=== PATIENT | female | born 1970 | race Caucasian/White ===

== ENCOUNTER 2017-09-13 09:15 | Emergency (ER) | payer OTHER ==
[2017-09-13 10:10] LABS: Absolute Monocytes 0.6 K/uL (0.1-1.3); Absolute Neutrophil 11.3 K/uL (1.8-8.0); Basophils % 0.9 % (0-1.3); Eosinophils % 0.5 % (0-4.4); Hematocrit 38.5 % (36.0-45.0); Lymphocytes % 14.2 % (15.3-44.8); MCH 29.1 pg (27.0-35.0); MCV 87.8 fL (80-100); MPV 7.3 fL (7.6-11.3); Monocytes % 4.4 % (3.3-12.3); RBC Red Blood Cell Count 4.39 M/uL (3.86-4.86)
[2017-09-13] MEDS ORDERED: ONDANSETRON 4 MG/2 ML VIAL ONE ×2 (10:21→12:21)
[2017-09-13] MEDS ORDERED: MORPHINE 4 MG/ML SYR ONE ×2 (10:21→14:28)
[2017-09-13] MEDS ORDERED: NA CHLORIDE 0.9% 1,000 ML ONE ×2 (10:21→14:19)
[2017-09-13 10:41] LABS: ALT/SGPT 15 IU/L (10-60); AST/SGOT 19 IU/L (10-42); Albumin 3.6 g/dL (3.2-5.5); Alkaline Phosphatase 74 IU/L (42-121); BUN Blood Urea Nitrogen 10 mg/dL (6-20); Bicarbonate 26 mEq/L (21-31); Bilirubin Direct < 0.1 mg/dL (0-0.2); Bilirubin Total 0.7 mg/dL (0.3-1.2); Glucose Level 141 mg/dL (65-120); Potassium 3.3 mEq/L (3.6-5.0); Protein, Total 8.7 g/dL (6.0-8.3); Sodium Level 137 mEq/L (135-145)
[2017-09-13 10:42] LABS: Blood Morphology Comment NOT SEEN (NOT SEEN); Platelet Estimate ADEQ; Urine White Blood Cell Casts OK
--- NOTE | 2017-09-13 12:53 | RAD REPORT ---
EXAM DESCRIPTION: CT - Abdomen Pelvis W Contrast - 09/13/2017 12:34 pm CLINICAL HISTORY: Abdominal pain, nausea vomiting and diarrhea, prior hysterectomy COMPARISON: CT imaging and September 03 TECHNIQUE: Biphasic, helical CT imaging of the abdomen and pelvis was performed following 100 ml non -ionic IV contrast. No oral contrast administered. All CT scans are performed using dose optimization technique as appropriate and may include automated exposure control or mA/KV adjustment according to patient size. FINDINGS: No suspicious findings in the lung bases. Liver and spleen are normal in size. No focal lesions identified. Pneumobilia is present. There is ai r within the lumen of the gallbladder. Air is not unexpected. Biliary stent is in place. Gallbladder size is normal. Pancreas is grossly abnormal. There is very extensive peripancreatic fluid and inflammatory stranding . There is poorly defined or hypoattenuating pancreatic tail suspicious for necrosis. Along the infer ior margin of the tail there is a 5 x 2.5 centimeter area of fluid that shows some greater definition or margination. This is probably a developing pseudocyst. Pancreatitis changes are slightly worse th an seen September 03. Symmetric renal function is seen with no hydronephrosis or suspicious renal mass. No dilated bowel loops. Soliz of the duodenal C-loop are mildly prominent indicating some secondary i nvolvement by the pancreatitis. Oral contrast has reached the mid small bowel. No free air or pneumat osis. No mass or bulky lymphadenopathy. The urinary bladder is without significant finding. No adren al abnormality. Uterus absent. No suspicious bony findings. IMPRESSION: Moderately severe acute pancreatitis slightly worse than seen on September 04 imaging. Hypoattenuation of the pancreatic tail concerning for necrosis. A 5 x 2.5 centimeter fluid collection is developed bowing along the inferior margin of the pancreatic tail believed to be a developing pseudocyst.
--- NOTE | 2017-09-13 13:59 | ER ---
Nurse's Notes [facility] Name: Christie Cardenas Age: 47 yrs Sex: Female : 1970 Arrival Date: 09/13/2017 Time: 09:18 Bed 15 Private MD: None, None Diagnosis: Necrotizing pancreatitis Presentation: 09/13 09:31 Presenting complaint: Patient states: N/V/D x2 days. Transition of care: patient was jl7 not received from another setting of care. Onset of symptoms was September 11, 2017. Risk Assessment: Do you want to hurt yourself or someone else? Patient reports no desire to harm self or others. Initial Sepsis Screen: Does the patient meet any 2 criteria? No. Patient's initial sepsis screen is negative. Does the patient have a suspected source of infection? No. Patient's initial sepsis screen is negative. Care prior to arrival: None. 09:31 Method Of Arrival: Ambulatory [facility] 09:31 Acuity: KVNG 3 jl7 Triage Assessment: 09:34 General: Appears in no apparent distress. uncomfortable, Behavior is cooperative, jl7 appropriate for age, anxious. Pain: Complains of pain in right upper quadrant Pain does not radiate. Pain currently is 10 out of 10 on a pain scale. Quality of pain is described as crampy, Pain began 2-3 days ago. Is continuous. Neuro: Level of Consciousness is awake, alert, obeys commands, Oriented to person, place, time, situation. Cardiovascular: Patient's skin is warm and dry. Respiratory: Airway is patent Respiratory effort is even, unlabored, Respiratory pattern is regular, symmetrical. GI: Abdomen is round non-distended, Bowel sounds present X 4 quads. : No signs and/or symptoms were reported regarding the genitourinary system. Derm: Skin is pink, warm \T\ dry. 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 - Social history:: Smoking status: Patient/guardian denies using tobacco. - Ebola Screening: : No symptoms or risks identified at this time. Screenin:38 Abuse screen: Denies threats or abuse. Denies injuries from another. Nutritional jl7 screening: No deficits noted. Tuberculosis screening: No symptoms or risk factors identified. Fall Risk None identified. Assessment: 09:38 General: See triage assessment. jl7 10:55 Reassessment: Pt reports decreased pain, rated 3/10. jl7 11:00 Reassessment: Patient appears in no apparent distress at this time. Patient and/or hb family updated on plan of care and expected duration. Pain level reassessed. Patient is alert, oriented x 3, equal unlabored respirations, skin warm/dry/pink. 11:45 Reassessment: Pt reports pain is beginning to increase again, rated 7/10. jl7 12:00 Reassessment: Patient appears in no apparent distress at this time. Patient and/or hb family updated on plan of care and expected duration. Pain level reassessed. Patient is alert, oriented x 3, equal unlabored respirations, skin warm/dry/pink. 13:00 Reassessment: Patient appears in no apparent distress at this time. Patient and/or hb family updated on plan of care and expected duration. Pain level reassessed. Patient is alert, oriented x 3, equal unlabored respirations, skin warm/dry/pink. 14:15 Reassessment: pt c/o increased pain, provider notified, see MAR for orders. jl7 14:30 Reassessment: Patient states feeling better. jl7 15:30 Reassessment: Patient and/or family updated on plan of care and expected duration. Pain jl7 level reassessed. Patient is alert, oriented x 3, equal unlabored respirations, skin warm/dry/pink. Vital Signs: 09:34 BP 156 / 99; Pulse 106; Resp 18 S; Temp 97.2(TE); Pulse Ox 96% on R/A; Weight 92.53 kg jl7 (R); Height 5 ft. 5 in. (165.10 cm) (R); Pain 10/10; 11:00 BP 142 / 82; Pulse 88; Resp 16; Pulse Ox 100% on R/A; hb 11:00 Pain 3/10; jl7 12:03 BP 139 / 68; Pulse 71; Resp 17; Pulse Ox 100% on R/A; Pain 7/10; hb 13:26 BP 136 / 72; Pulse 70; Resp 16; Pulse Ox 100% on R/A; hb 15:00 BP 138 / 71; Pulse 71; Resp 16; Pulse Ox 100% ; jl7 09:34 Body Mass Index 33.95 (92.53 kg, 165.10 cm) jl7 ED Course: 09:18 Patient arrived in ED. sb2 09:19 None, None is Private Physician. sb2 09:27 Dharmesh Drake, RN is Primary Nurse. jl7 09:32 Triage completed. jl7 09:34 Arm band placed on right wrist. jl7 09:38 Patient has correct armband on for positive identification. Bed in low position. Call [facility] light in reach. Side rails up X 1. Pulse ox on. NIBP on. Warm blanket given. 09:49 Eliecer Maddox PA is PHCP. jr8 09:49 Osiel Armijo MD is Attending Physician. jr8 10:06 Initial lab(s) drawn, by nh, sent to lab. Inserted saline lock: 20 gauge in left 7 antecubital area, using aseptic technique. Blood collected. 12:27 CT completed. Patient tolerated procedure well. Patient moved to CT via wheelchair. mw3 Patient moved back from CT. 12:34 Abdomen In Process Unspecified. EDMS Administered Medications: 10:24 Drug: NS 0.9% 1000 ml Route: IV; Rate: 1000 ml; Site: left antecubital; jl7 11:30 Follow up: IV Status: Completed infusion jl7 10:25 Drug: Zofran 4 mg Route: IVP; Site: left antecubital; jl7 11:00 Follow up: Response: No adverse reaction jl7 10:27 Drug: morphine 4 mg Route: IVP; Site: left antecubital; jl7 11:00 Follow up: Pain 3/10; Response: No adverse reaction; Pain is decreased jl7 12:58 CANCELLED (Physician Discretion): Zosyn 3.375 grams IVPB once over 60 mins; (mix in NS jr8 100 mL) 14:30 Drug: morphine 4 mg Route: IVP; Site: left antecubital; jl7 14:40 Follow up: Response: No adverse reaction; Pain is decreased jl7 14:31 Drug: Meropenem 1 grams Route: IV; Rate: calculated rate; Site: left antecubital; jl7 15:00 Follow up: Response: No adverse reaction; IV Status: Completed infusion 14:32 Drug: NS 0.9% 1000 ml Route: IV; Rate: 125 ml/hr; Site: left antecubital; jl7 16:10 Follow up: IV Status: Infusion continued upon transfer Outcome: 13:59 ER care complete, transfer ordered by rn 16:13 Patient left the ED. Signatures: Dispatcher [employer] EDMS Osiel Armijo MD MD rn Roszak, Josh, PA PA jr8 Nata Radford RN RN hb Leal, Jahala, RN RN jl7 Adele Maldonado sb2 Marcia Sandoval mw3 Corrections: (The following items were deleted from the chart) 12:06 12:06 Pain 3/10 Adult; Response: No adverse reaction; Pain is decreased 7
[2017-09-13] MEDS ORDERED: Meropenem 1,000 MG in NA CHLORIDE 0.9% 100 ML IV ONE (14:00)
--- NOTE | 2017-09-13 14:00 | EDPHYS ---
Physician Documentation [facility] Name: Christie Cardenas Age: 47 yrs Sex: Female : 1970 Arrival Date: 09/13/2017 Time: 09:18 Bed 15 Private MD: None, None ED Physician Osiel Armijo HPI: 09/13 10:04 This 47 yrs old Female presents to ER via Ambulatory with complaints of jr8 Abdominal Pain, Diarrhea. 10:04 The patient presents with abdominal pain in the upper abdomen. Onset: The jr8 symptoms/episode began/occurred acutely, 2 day(s) ago. The symptoms do not radiate. Associated signs and symptoms: Pertinent positives: nausea, vomiting, and diarrhea. The symptoms are described as sharp. Modifying factors: The symptoms are alleviated by nothing, the symptoms are aggravated by nothing. Severity of pain: At its worst the pain was moderate in the emergency department the pain is unchanged. The patient has experienced a previous episode. The patient has not recently seen a physician. Patient stated that she was discharged a few days ago from having a stent placed in CBD from a stone. The stone caused pancreatitis. Stated that she was still having some pain on/off but now having n/v/d. Denies fevers . 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 - Social history:: Smoking status: Patient/guardian denies using tobacco. - Ebola Screening: : No symptoms or risks identified at this time. ROS: 10:04 Eyes: Negative for injury, pain, redness, and discharge, ENT: Negative for injury, jr8 pain, and discharge, Neck: Negative for injury, pain, and swelling, Cardiovascular: Negative for chest pain, palpitations, and edema, Respiratory: Negative for shortness of breath, cough, wheezing, and pleuritic chest pain, Back: Negative for injury and pain, MS/Extremity: Negative for injury and deformity, Skin: Negative for injury, rash, and discoloration, Neuro: Negative for headache, weakness, numbness, tingling, and seizure. 10:04 Abdomen/GI: Positive for abdominal pain, nausea, vomiting, and diarrhea, Negative for abdominal cramps, abdominal distension, anorexia, dysphagia, hematemesis, black/tarry stool, rectal pain, rectal bleeding, bowel incontinence, flatulence. Exam: 10:04 Eyes: Pupils equal round and reactive to light, extra-ocular motions intact. Lids and jr8 lashes normal. Conjunctiva and sclera are non-icteric and not injected. Cornea within normal limits. Periorbital areas with no swelling, redness, or edema. ENT: Nares patent. No nasal discharge, no septal abnormalities noted. Tympanic membranes are normal and external auditory canals are clear. Oropharynx with no redness, swelling, or masses, exudates, or evidence of obstruction, uvula midline. Mucous membranes moist. Neck: Trachea midline, no thyromegaly or masses palpated, and no cervical lymphadenopathy. Supple, full range of motion without nuchal rigidity, or vertebral point tenderness. No Meningismus. Cardiovascular: Regular rate and rhythm with a normal S1 and S2. No gallops, murmurs, or rubs. Normal PMI, no JVD. No pulse deficits. Respiratory: Lungs have equal breath sounds bilaterally, clear to auscultation and percussion. No rales, rhonchi or wheezes noted. No increased work of breathing, no retractions or nasal flaring. Back: No spinal tenderness. No costovertebral tenderness. Full range of motion. Skin: Warm, dry with normal turgor. Normal color with no rashes, no lesions, and no evidence of cellulitis. MS/ Extremity: Pulses equal, no cyanosis. Neurovascular intact. Full, normal range of motion. Neuro: Awake and alert, GCS 15, oriented to person, place, time, and situation. Cranial nerves II-XII grossly intact. Motor strength 5/5 in all extremities. Sensory grossly intact. Cerebellar exam normal. Normal gait. 10:04 Abdomen/GI: Inspection: obese Bowel sounds: active, all quadrants, Palpation: soft, in all quadrants, mild abdominal tenderness, in the epigastric area and right upper quadrant, mass, is not appreciated, rebound tenderness, is not appreciated, voluntary guarding, is not appreciated, involuntary guarding, is not appreciated, no appreciated organomegaly, Indicators: McBurney's point is not tender, Luciano's sign is negative, Rovsing's sign is negative, Liver: no appreciated palpable abnormalities, tenderness, is not appreciated. Vital Signs: 09:34 BP 156 / 99; Pulse 106; Resp 18 S; Temp 97.2(TE); Pulse Ox 96% on R/A; Weight 92.53 kg jl7 (R); Height 5 ft. 5 in. (165.10 cm) (R); Pain 10/10; 11:00 BP 142 / 82; Pulse 88; Resp 16; Pulse Ox 100% on R/A; hb 11:00 Pain 3/10; jl7 12:03 BP 139 / 68; Pulse 71; Resp 17; Pulse Ox 100% on R/A; Pain 7/10; hb 13:26 BP 136 / 72; Pulse 70; Resp 16; Pulse Ox 100% on R/A; hb 15:00 BP 138 / 71; Pulse 71; Resp 16; Pulse Ox 100% ; jl7 09:34 Body Mass Index 33.95 (92.53 kg, 165.10 cm) jl7 MDM: 09:49 Patient medically screened. jr8 13:03 Data reviewed: vital signs, nurses notes, lab test result(s), radiologic studies, CT jr8 scan, and as a result, I will admit patient. Data interpreted: Pulse oximetry: on room air is 100 %. Interpretation: normal. Counseling: I had a detailed discussion with the patient and/or guardian regarding: the historical points, exam findings, and any diagnostic results supporting the discharge/admit diagnosis, lab results, radiology results, the need to transfer to another facility, for higher level of care. ED course: Spoke with Dr. Rodriguez about this patient since she was recently here. CT shows worsening of pancreatitis with now necrosis to tail region possibly. Will transfer since our general surgery team does not do Whipple procedures incase patient is needing this . 09/13 09:49 Order name: Basic Metabolic Panel; Complete Time: 11:09/13 09:49 Order name: CBC with Diff; Complete Time: 11:09/13 09:49 Order name: Creatinine for Radiology; Complete Time: 11:09/13 09:49 Order name: Hepatic Function; Complete Time: 11: 09/13 09:54 Order name: Lipase; Complete Time: 13:02 hb 09/13 10:15 Order name: CBC Smear Scan; Complete Time: 11:01 [facility] 09/13 12:24 Order name: Abdomen ; Complete Time: 12:55 [facility] 09/13 09:49 Order name: IV Saline Lock; Complete Time: 10:05 8 09/13 09:49 Order name: Labs collected and sent; Complete Time: 10: [facility] Administered Medications: 10:24 Drug: NS 0.9% 1000 ml Route: IV; Rate: 1000 ml; Site: left antecubital; jl7 11:30 Follow up: IV Status: Completed infusion jl7 10:25 Drug: Zofran 4 mg Route: IVP; Site: left antecubital; jl7 11:00 Follow up: Response: No adverse reaction jl7 10:27 Drug: morphine 4 mg Route: IVP; Site: left antecubital; jl7 11:00 Follow up: Pain 3/10; Response: No adverse reaction; Pain is decreased jl7 12:58 CANCELLED (Physician Discretion): Zosyn 3.375 grams IVPB once over 60 mins; (mix in NS jr8 100 mL) 14:30 Drug: morphine 4 mg Route: IVP; Site: left antecubital; jl7 14:40 Follow up: Response: No adverse reaction; Pain is decreased jl7 14:31 Drug: Meropenem 1 grams Route: IV; Rate: calculated rate; Site: left antecubital; jl7 15:00 Follow up: Response: No adverse reaction; IV Status: Completed infusion jl7 14:32 Drug: NS 0.9% 1000 ml Route: IV; Rate: 125 ml/hr; Site: left antecubital; jl7 16:10 Follow up: IV Status: Infusion continued upon transfer jl7 Disposition: 17:30 Co-signature as Attending Physician, Osiel Armijo MD. rn Disposition: 09/13/17 13:59 Transfer ordered to [facility]. Diagnosis is Necrotizing pancreatitis. - Reason for transfer: Higher level of care. - Accepting physician is Dr. Dunn. - Condition is Stable. - Problem is new. - Symptoms have improved. Signatures: Dispatcher [employer] [facility] Armijo, Osiel, Eliecer Bryan MD, rn, PA PA jr8 Dharmesh Drake, RN RN jl7 Corrections: (The following items were deleted from the chart) 10:05 09:49 Urine Test ordered. jr8 jl7 12:58 12:56 Zosyn 3.375 grams IVPB once over 60 mins; (mix in NS 100 mL) ordered. jr8 jr8 13:01 11:51 Abdomen Pelvis W Con+CT.RAD.BRZ ordered. EDMS EDMS 14:11 13:59 09/13/2017 13:59 Transfer ordered to [facility]. Diagnosis is rn Necrotizing pancreatitis. Reason for transfer: Higher level of care. Accepting physician is . Condition is Stable. Problem is new. Symptoms have improved. rn 16:13 14:11 09/13/2017 13:59 Transfer ordered to [facility]. Diagnosis is jl7 Necrotizing pancreatitis. Reason for transfer: Higher level of care. Accepting physician is Dr. Dunn. Condition is Stable. Problem is new. Symptoms have improved. rn
[2017-09-13] MEDS ORDERED: Meropenem 1 GM/100 ML BAG ONE (14:18)
[2017-09-13 16:32] VITALS: TEMP 97.2
[2017-09-13 16:33] VITALS: O2SAT 100
[2017-09-13 16:37] VITALS: BP 138/71
== END 2017-09-13 16:13 | disposition short-term general hospital (02) ==
LOC: ER 09:15
DX: K85.91 Acute pancreatitis with uninfected necrosis, unspecified (principal); I10 Essential (primary) hypertension; Z79.01 Long term (current) use of anticoagulants; Z88.1 Allergy status to other antibiotic agents; Z86.73 Personal history of transient ischemic attack (TIA), and cerebral infarction without residual deficits
CPT/HCPCS: 36415; 74177; 80048; 80076; 83690; 85025; 96361; 96365; 96375; 99284; J2185; J2405; J7030; Q9967

== ENCOUNTER 2017-11-08 09:04 | Observation (INO) | payer OTHER ==
[2017-11-08 10:22] LABS: Urine Blood NEGATIVE (NEG); Urine Glucose NEGATIVE (NEG); Urine Protein 3+ (NEG); Urine Specific Gravity >1.030 (1.005-1.030)
[2017-11-08 10:25] LABS: Urine Bacteria <20 /HPF (<20); Urine Culture Reflex Order NOT NEEDED; Urine Mucus 3+ /HPF (NONE SEEN); Urine RBC <5 /HPF (NONE SEEN)
[2017-11-08] MEDS ORDERED: NA CHLORIDE 0.9% 1,000 ML ONE (11:05)
[2017-11-08] MEDS ORDERED: ONDANSETRON 4 MG/2 ML VIAL ONE (11:06)
[2017-11-08] MEDS ORDERED: MORPHINE 4 MG/ML SYR ONE ×2 (11:06→12:56)
[2017-11-08 11:08] LABS: Absolute Lymphocytes (CBC) 2.3 K/uL (0.7-4.9); Absolute Monocytes 0.6 K/uL (0.1-1.3); Absolute Neutrophil 4.8 K/uL (1.8-8.0); Basophils % 1.3 % (0-1.3); Eosinophils % 0.4 % (0-4.4); Hematocrit 37.8 % (36.0-45.0); Lymphocytes % 29.2 % (15.3-44.8); MCH 27.9 pg (27.0-35.0); MCV 83.4 fL (80-100); MPV 8.4 fL (7.6-11.3); Monocytes % 7.4 % (3.3-12.3); RBC Red Blood Cell Count 4.53 M/uL (3.86-4.86)
[2017-11-08 11:28] LABS: Bilirubin Direct 0.1 mg/dL (0-0.2); Bilirubin Total 0.5 mg/dL (0.2-1.0); Potassium 3.2 mmol/L (3.5-5.1); Protein, Total 8.6 g/dL (6.4-8.2)
--- NOTE | 2017-11-08 12:37 | RAD REPORT ---
EXAM DESCRIPTION: CT - Abdomen Pelvis W Contrast - 11/08/2017 12:15 pm CLINICAL HISTORY: Abdominal pain with vomiting for 2 days COMPARISON: August 2017 TECHNIQUE: Computed axial tomography of the abdomen pelvis was obtained. 100 cc Isovue-300 was admin istered intravenously. Oral contrast was not requested which limits evaluation of bowel. All CT scans are performed using dose optimization technique as appropriate and may include automated exposure control or mA/KV adjustment according to patient size. FINDINGS: An 8.5 x 3 centimeter fluid collection within the region of the pancreatic tail has enlarg ed since the prior exam. A 3 centimeter pseudocyst within these region of the pancreatic neck has dev eloped. Enhancement of the distal pancreatic tail is not noted. The pancreatic head and body do not demonstra te a significant abnormality. A 3.7 x 1.9 centimeter low density area within posterior segment of the right lobe of the liver has d eveloped. A stent has a portion within the common bile duct as well as duodenum. Pneumobilia is prese nt. The spleen, adrenals and kidneys appear unremarkable. There is no evidence of diverticulitis. The appendix is normal. IMPRESSION: 8.5 x 3 centimeters pseudocyst which has enlarged. An additional 3 centimeter pseudocyst s has developed. No enhancement of the distal aspect of the pancreatic tail compatible with necrosis. This was present on the prior examination. A 3.7 x 1.9 centimeter low-density area within the right lobe of the liver likely either represents a focal area of fatty infiltration or an area of differential perfusion
--- NOTE | 2017-11-08 13:48 | ER ---
Nurse's Notes [facility] Name: Christie Cardenas Age: 47 yrs Sex: Female : 1970 Arrival Date: 11/08/2017 Time: 09:06 Bed 19 Private MD: Rebecca Bowser M Diagnosis: Unspecified abdominal pain;Pseudocyst of pancreas Presentation: 11/08 09:30 Presenting complaint: Patient states: LUQ an RLQ pain and N/V x 2 days. Denies hb fever/diarrhea. Pt reports she had a bile duct stent placed [address] Bowser, was supposed to have it removed at 6 weeks but forgot. Transition of care: patient was not received from another setting of care. Onset of symptoms was November 07, 2017. 09:30 Method Of Arrival: Ambulatory hb 09:30 Acuity: KVNG 3 hb 10:00 Risk Assessment: Do you want to hurt yourself or someone else? Patient reports no ed1 desire to harm self or others. Initial Sepsis Screen: Does the patient meet any 2 criteria? No. Patient's initial sepsis screen is negative. Does the patient have a suspected source of infection? No. Patient's initial sepsis screen is negative. Care prior to arrival: None. 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 - Social history:: Smoking status: Patient/guardian denies using tobacco. - Ebola Screening: : Patient negative for fever greater than or equal to 101.5 degrees Fahrenheit, and additional compatible Ebola Virus Disease symptoms Patient denies exposure to infectious person Patient denies travel to an Ebola-affected area in the 21 days before illness onset No symptoms or risks identified at this time. Screenin:03 Abuse screen: Denies threats or abuse. Denies injuries from another. Nutritional ed1 screening: No deficits noted. Tuberculosis screening: No symptoms or risk factors identified. Fall Risk None identified. Assessment: 10:00 General: Appears uncomfortable, Behavior is calm, cooperative. Pain: Complains of pain ed1 in abdomen Pain does not radiate. Pain currently is 8 out of 10 on a pain scale. Quality of pain is described as sharp, Pain began 1 day ago. Is continuous. Neuro: Level of Consciousness is awake, alert, obeys commands, Oriented to person, place, time, situation, Reports previous CVA. Cardiovascular: Denies chest pain, Heart tones S1 S2 present. Respiratory: Airway is patent Respiratory effort is even, unlabored, Respiratory pattern is regular, symmetrical, Breath sounds are clear bilaterally. GI: Abdomen is non-distended, Bowel sounds present X 4 quads. Abd is soft X 4 quads Abdomen is tender to palpation in left upper quadrant and right lower quadrant Reports diarrhea, nausea, vomiting. : No signs and/or symptoms were reported regarding the genitourinary system. EENT: No signs and/or symptoms were reported regarding the EENT system. Derm: Skin is pink, warm \T\ dry. Musculoskeletal: Circulation, motion, and sensation intact. Range of motion: intact in all extremities. 10:10 Reassessment: I agree with previous assessment. hb 11:11 Reassessment: Patient appears in no apparent distress at this time. No changes from ed1 previously documented assessment. Patient and/or family updated on plan of care and expected duration. Pain level reassessed. Patient is alert, oriented x 3, equal unlabored respirations, skin warm/dry/pink. Patient states symptoms have not improved. 12:27 Reassessment: Patient appears in no apparent distress at this time. No changes from ed1 previously documented assessment. Patient and/or family updated on plan of care and expected duration. Pain level reassessed. Patient is alert, oriented x 3, equal unlabored respirations, skin warm/dry/pink. Patient states symptoms have not improved. 13:33 Reassessment: Patient appears in no apparent distress at this time. No changes from ed1 previously documented assessment. Patient and/or family updated on plan of care and expected duration. Pain level reassessed. Patient is alert, oriented x 3, equal unlabored respirations, skin warm/dry/pink. Patient states symptoms have not improved. 14:04 Reassessment: Patient appears in no apparent distress at this time. No changes from ed1 previously documented assessment. Patient and/or family updated on plan of care and expected duration. Pain level reassessed. Patient is alert, oriented x 3, equal unlabored respirations, skin warm/dry/pink. 15:00 Reassessment: Patient appears in no apparent distress at this time. No changes from ed1 previously documented assessment. Patient and/or family updated on plan of care and expected duration. Pain level reassessed. Patient is alert, oriented x 3, equal unlabored respirations, skin warm/dry/pink. Vital Signs: 09:32 BP 149 / 82; Pulse 88; Resp 16; Temp 98; Pulse Ox 100% on R/A; Pain 8/10; hb 11:11 BP 159 / 89; Pulse 76; Resp 18; Pulse Ox 91% on R/A; Pain 8/10; ed1 12:27 BP 158 / 91; Pulse 76; Resp 18; Pulse Ox 96% on R/A; Pain 8/10; ed1 13:33 BP 135 / 73; Pulse 73; Resp 16; Pulse Ox 93% on R/A; Pain 6/10; ed1 14:04 BP 143 / 97; Pulse 69; Resp 18; Temp 97.9(O); Pulse Ox 97% on R/A; Pain 6/10; ed1 15:00 BP 148 / 77; Pulse 67; Resp 16; Temp 97.2(O); Pulse Ox 95% on R/A; Pain 6/10; ed1 ED Course: 09:06 Patient arrived in ED. as 09:06 Rebecca Bowser MD is Private Physician. as 09:31 Triage completed. hb 09:32 Arm band placed on left wrist. hb 09:51 Maria Elena Boyd LVN is Primary Nurse. ed1 10:03 Awaiting ED provider evaluation. ed1 10:03 Patient has correct armband on for positive identification. Placed in gown. Bed in low ed1 position. Call light in reach. 10:07 Steve Lambert PA is PHCP. [facility] 10:07 Warm blanket given. em1 10:08 Abdullahi Doherty MD is Attending Physician. jmm 10:11 Urine collected: clean catch specimen, tea colored. ed1 10:48 Missed attempt(s): 22 gauge in right antecubital area. Bleeding controlled, band aid ed1 applied, catheter tip intact. 11:04 Initial lab(s) drawn, by me, sent to lab. Inserted saline lock: 20 gauge in left em1 antecubital area, using aseptic technique. Blood collected. 12:[address] via wheelchair. mw3 12:15 CT completed. Patient tolerated procedure well. Patient moved back from CT. mw3 12:15 CT Abd/Pelvis - W/Contrast In Process Unspecified. EDMS 13:46 Tracy Rodriguez MD is Hospitalizing Provider. jmm 14:59 No provider procedures requiring assistance completed. Patient admitted, IV remains in ed1 place. intact, No redness/swelling at site. Administered Medications: 11:10 Drug: NS 0.9% 1000 ml Route: IV; Rate: 1 bolus; Site: right antecubital; ph 15:02 Follow up: IV Status: Completed infusion; IV Intake: 1000ml ed1 11:10 Drug: Zofran 4 mg Route: IVP; Site: right antecubital; ph 12:55 Follow up: Response: No adverse reaction; Nausea is decreased ed1 11:10 Drug: morphine 4 mg Route: IVP; Site: right antecubital; ph 12:55 Follow up: Response: No adverse reaction; Pain is unchanged, physician notified ed1 12:55 Drug: morphine 4 mg Route: IVP; Site: left antecubital; ed1 14:06 Follow up: Response: No adverse reaction; Pain is decreased ed1 Intake: 15:02 IV: 1000ml; Total: 1000ml. ed1 Outcome: 13:47 Decision to Hospitalize by Provider. shai 16:33 Admitted to Med/surg accompanied by tech, via wheelchair, room 231, with chart, Report ed1 called to ANI Weiss 16:33 Condition: stable 16:33 Discharge instructions given to patient, Instructed on the need for admit, Demonstrated understanding of instructions. 16:34 Patient left the ED. ed1 Signatures: Dispatcher [employer] EDMS Steve Lambert PA PA jmm Martinez, Amelia as Martinez, Eric em1 Maria Elena Boyd, OPERATORS SCHOOL MANAGER OPERATORS SCHOOL MANAGER ed1 Dennise Siu RN RN Nata Radford RN RN hb Willis, Michelle mw3
--- NOTE | 2017-11-08 13:48 | EDPHYS ---
Physician Documentation [facility] Name: Christie Cardenas Age: 47 yrs Sex: Female : 1970 Arrival Date: 11/08/2017 Time: 09:06 Bed 19 Private MD: Rebecca Bowser M ED Physician Abdullahi Doherty HPI: 11/08 10:39 This 47 yrs old Female presents to ER via Ambulatory with complaints of jmm Abdominal Pain. 10:39 The patient presents with abdominal pain in the left upper quadrant. Onset: The jmm symptoms/episode began/occurred acutely. The symptoms do not radiate. Associated signs and symptoms: Pertinent positives: diarrhea, vomiting. This is a 47 year old female a history of CVA, pancreatitis, HTN that presents to the ED with epigastric abdominal pain beginning 2 days ago. Patient states having similar symptoms in past with episodes of pancreatitis. Patient states that she had a pancreatic stent inserted 4 weeks ago. . 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 - Social history:: Smoking status: Patient/guardian denies using tobacco. - Ebola Screening: : Patient negative for fever greater than or equal to 101.5 degrees Fahrenheit, and additional compatible Ebola Virus Disease symptoms Patient denies exposure to infectious person Patient denies travel to an Ebola-affected area in the 21 days before illness onset No symptoms or risks identified at this time. ROS: 10:41 Constitutional: Negative for fever, chills, and weight loss, Cardiovascular: Negative jmm for chest pain, palpitations, and edema, Respiratory: Negative for shortness of breath, cough, wheezing, and pleuritic chest pain. 10:41 Back: Negative for injury and pain, MS/Extremity: Negative for injury and deformity, Skin: Negative for injury, rash, and discoloration, Neuro: Negative for headache, weakness, numbness, tingling, and seizure. 10:41 Abdomen/GI: Positive for abdominal pain, nausea and vomiting, diarrhea. 10:41 All other systems are negative. Exam: 10:41 Head/Face: atraumatic. Chest/axilla: Normal chest wall appearance and motion. [facility] Cardiovascular: Regular rate and rhythm. No edema appreciated Respiratory: Normal respirations, no respiratory distress appreciated 10:41 Constitutional: The patient appears in no acute distress, alert, awake. 10:41 Abdomen/GI: Inspection: abdomen appears normal, Bowel sounds: normal, Palpation: abdomen is soft and non-tender, in all quadrants. 10:41 Back: ROM is normal. 10:41 Musculoskeletal/extremity: Extremities: ROM: intact in all extremities. 10:41 Skin: Appearance: Color: normal in color. 10:41 Neuro: Orientation: is normal, Mentation: is normal, Memory: is normal. 10:41 Psych: Behavior/mood is pleasant, cooperative. Vital Signs: 09:32 BP 149 / 82; Pulse 88; Resp 16; Temp 98; Pulse Ox 100% on R/A; Pain 8/10; hb 11:11 BP 159 / 89; Pulse 76; Resp 18; Pulse Ox 91% on R/A; Pain 8/10; ed1 12:27 BP 158 / 91; Pulse 76; Resp 18; Pulse Ox 96% on R/A; Pain 8/10; ed1 13:33 BP 135 / 73; Pulse 73; Resp 16; Pulse Ox 93% on R/A; Pain 6/10; ed1 14:04 BP 143 / 97; Pulse 69; Resp 18; Temp 97.9(O); Pulse Ox 97% on R/A; Pain 6/10; ed1 15:00 BP 148 / 77; Pulse 67; Resp 16; Temp 97.2(O); Pulse Ox 95% on R/A; Pain 6/10; ed1 MDM: 10:32 Patient medically screened. [facility] 13:45 Data reviewed: vital signs, nurses notes, lab test result(s), radiologic studies, CT [facility] scan. Counseling: I had a detailed discussion with the patient and/or guardian regarding: the historical points, exam findings, and any diagnostic results supporting the discharge/admit diagnosis, the need for outpatient follow up, to return to the emergency department if symptoms worsen or persist or if there are any questions or concerns that arise at home. 07/18 09:12 Order name: Urine Culture formerly [facility] 11/08 09:12 Order name: Urine Microscopic Only; Complete Time: 10:32 [facility] 11/08 10:13 Order name: Urine Dipstick--Ancillary (enter results); Complete Time: 10:32 11/08 10:13 Order name: Urine --Ancillary (enter results); Complete Time: 10:32 11/08 10:34 Order name: Amylase, Serum; Complete Time: 11:39 [facility] 11/08 10:34 Order name: Basic Metabolic Panel; Complete Time: 11:39 [facility] 11/08 10:34 Order name: CBC with Diff; Complete Time: 11:11 [facility] 11/08 10:34 Order name: Creatinine for Radiology; Complete Time: 11:39 [facility] 11/08 10:34 Order name: Hepatic Function; Complete Time: 11:39 [facility] 11/08 10:34 Order name: Lipase; Complete Time: 11:39 [facility] 11/08 10:38 Order name: CT Abd/Pelvis - W/Contrast; Complete Time: 12:38 [facility] 11/08 09:12 Order name: Urine Test (obtain specimen); Complete Time: 10:12 [facility] 11/08 09:12 Order name: Urine Dipstick-Ancillary (obtain specimen); Complete Time: 10:12 [facility] 11/08 10:34 Order name: IV Saline Lock; Complete Time: 11:05 [facility] 11/08 10:34 Order name: Labs collected and sent; Complete Time: 11:05 [facility] Administered Medications: 11:10 Drug: NS 0.9% 1000 ml Route: IV; Rate: 1 bolus; Site: right antecubital; ph 15:02 Follow up: IV Status: Completed infusion; IV Intake: 1000ml ed1 11:10 Drug: Zofran 4 mg Route: IVP; Site: right antecubital; ph 12:55 Follow up: Response: No adverse reaction; Nausea is decreased ed1 11:10 Drug: morphine 4 mg Route: IVP; Site: right antecubital; ph 12:55 Follow up: Response: No adverse reaction; Pain is unchanged, physician notified ed1 12:55 Drug: morphine 4 mg Route: IVP; Site: left antecubital; ed1 14:06 Follow up: Response: No adverse reaction; Pain is decreased ed1 Disposition: 11/08/17 13:47 Hospitalization ordered by Tracy Rodriguez for Observation. Preliminary diagnosis are Unspecified abdominal pain, Pseudocyst of pancreas. - Bed requested for Telemetry/MedSurg (observation). - Status is Observation. ed1 - Condition is Stable. - Problem is new. - Symptoms are unchanged. UTI on Admission? No Addendum: 11/10/2017 19:55 Co-signature as Attending Physician, Abdullahi Doherty MD I agree with the assessment and w a plan of care. Signatures: Dispatcher [employer] EDMS Mai Cristobal RN RN Sophie Hall, DIRECTOR OF GRANTS-C DIRECTOR OF GRANTS-Csnw Steve Lambert PA PA [facility] Maria Elena Boyd, LOGGING CREW SUPERVISOR LOGGING CREW SUPERVISOR ed1 Dennise Siu RN RN Nata Radford RN RN Abdullahi Doherty MD MD ia Corrections: (The following items were deleted from the chart) 11/08 10:47 10:39 This is a 47 year old female a history of CVA, pancreatitis, HTN that presents to [facility] the ED with epigastric abdominal pain beginning . [facility] 14:58 13:47 Hospitalization Ordered by Tracy Rodriguez MD for Observation. Preliminary diagnosis is Unspecified abdominal pain; Pseudocyst of pancreas. Bed requested for Telemetry/MedSurg (observation). Status is Observation. Condition is Stable. Problem is new. Symptoms are unchanged. UTI on Admission? No. [facility] 16:34 14:58 11/08/2017 13:47 Hospitalization Ordered by Tracy Rodriguez MD for Observation. ed1 Preliminary diagnosis is Unspecified abdominal pain; Pseudocyst of pancreas. Bed requested for Telemetry/MedSurg (observation). Status is Observation. Condition is Stable. Problem is new. Symptoms are unchanged. UTI on Admission? No. dw
[2017-11-08] MEDS ORDERED: ACETAMINOPHEN 500 MG TAB PO PRN (14:13)
[2017-11-08 16:33] VITALS: BMI 32.9
[2017-11-08] MEDS: D5 0.45 NS 1,000 ML IV SCH ×2 (17:35→23:00)
[2017-11-08] MEDS: MORPHINE 4 MG/ML SYR IV PRN ×2 (17:43→21:58)
[2017-11-08] MEDS: ONDANSETRON 4 MG/2 ML VIAL IV PRN (17:46)
[2017-11-08 18:40] LABS: Urine Appearance CLEAR; Urine Blood NEGATIVE (NEG); Urine Color DK YELLOW; Urine Glucose NEGATIVE (NEG); Urine Protein 2+ (NEG); Urine Specific Gravity >=1.030 (1.005-1.030)
[2017-11-08 18:56] LABS: Urine Microscopic Reflex ORDER UMIC
[2017-11-08 19:01] LABS: Urine Bacteria <20 /HPF (<20); Urine Bilirubin NEGATIVE (NEG); Urine RBC <5 /HPF (NONE SEEN)
[2017-11-08 19:02] LABS: Urine Culture Reflex Order NOT NEEDED; Urine Mucus 1+ /HPF (NONE SEEN)
[2017-11-09] MEDS: D5 0.45 NS 1,000 ML IV SCH ×4 (02:10→23:51)
[2017-11-09] MEDS: MORPHINE 4 MG/ML SYR IV PRN ×5 (02:11→21:52)
[2017-11-09 05:17] LABS: Absolute Lymphocytes (CBC) 1.9 K/uL (0.7-4.9); Absolute Monocytes 0.5 K/uL (0.1-1.3); Absolute Neutrophil 4.1 K/uL (1.8-8.0); Basophils % 0.6 % (0-1.3); Hematocrit 31.2 % (36.0-45.0); Lymphocytes % 29.1 % (15.3-44.8); MCH 28.8 pg (27.0-35.0); MCV 85.7 fL (80-100); MPV 8.3 fL (7.6-11.3); Monocytes % 7.5 % (3.3-12.3); RBC Red Blood Cell Count 3.64 M/uL (3.86-4.86)
[2017-11-09 05:33] LABS: ALT/SGPT 21 U/L (12-78); AST/SGOT 20 U/L (15-37); Albumin 3.2 g/dL (3.4-5.0); Alkaline Phosphatase 61 U/L (45-117); BUN Blood Urea Nitrogen 12 mg/dL (7-18); Bicarbonate 29 mmol/L (21-32); Bilirubin Direct 0.1 mg/dL (0-0.2); Bilirubin Total 0.5 mg/dL (0.2-1.0); Glucose Level 133 mg/dL (74-106); Lipase 218 U/L (73-393); Potassium 3.3 mmol/L (3.5-5.1); Protein, Total 6.9 g/dL (6.4-8.2); Sodium Level 144 mmol/L (136-145)
--- NOTE | 2017-11-09 06:56 | P.HP ---
Certification for Inpatient Patient admitted to: Observation With expected LOS: <2 Midnights Patient will require the following post-hospital care: None Practitioner: I am a practitioner with admitting privileges, knowledge of patient current condition, hospital course, and medical plan of care. 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 Patient was diagnosed with pancreatitis secondary to common bile duct stricture. Patient had a stent placed. Patient developed secondary pancreatitis. Patient has severe pancreatitis. She was discharged from the hospital but required readmission a few days later because her pancreatitis had not improved. Patient developed a large pseudocyst at this time. Patient was discharged to a facility in [place] and then went to an LTAC and was given TPN. As patient's pancreatitis improved the TPN was DC. Patient was discharged from the LTAC about a week ago. Patient came back into the hospital to get her stent removed. Allergies sulfamethoxazole [From Bactrim] Allergy (Verified 08/27/17 16:18) Hives/Rash trimethoprim [From Bactrim] Allergy (Verified 08/27/17 16:18) Hives/Rash Home Medications: ALPRAZolam [Xanax] 0.5 mg PO Q6H PRN 11/08/17 Carvedilol [Coreg] 25 mg PO BID 11/08/17 Dicyclomine [Bentyl] 10 mg PO TID 11/08/17 Hydrocodone 10/APAP 325 [[place] 10/325] 1 tab PO Q6H PRN 11/08/17 Pantoprazole [Protonix Tab] 40 mg PO DAILY 11/08/17 Rivaroxaban [Xarelto] 20 mg PO DAILY 11/08/17 Zolpidem Tartrate [Zolpidem Tartrate ER] 12.5 mg PO BEDTIME 11/08/17 - Past Medical/Surgical History Has patient received pneumonia vaccine in the past: Yes Diabetic: No -: HTN -: Pt had a stroke in July 2016 -: Anxiety -: hysterectomy - Family History Father Family History: Reviewed- Non-Contributory - Social History Smoking Status: Never smoker Alcohol use: No CD- Drugs: No Caffeine use: Yes Place of Residence: Home Review of Systems 10-point ROS is otherwise unremarkable Physical Examination - Vital Signs Temperature: 96.8 F Blood Pressure: 153/73 Pulse: 57 Respirations: 18 Pulse Ox (%): 96 - Physical Exam General: Alert, In no apparent distress, Oriented x3 HEENT: Atraumatic, PERRLA, Mucous membr. moist/pink, EOMI, Sclerae nonicteric Neck: Supple, 2+ carotid pulse no bruit, No LAD, Without JVD or thyroid abnormality Respiratory: Clear to auscultation bilaterally, Normal air movement Cardiovascular: Regular rate/rhythm, Normal S1 S2, No murmurs Gastrointestinal: Normal bowel sounds, Soft and benign, Non-distended, No tenderness Musculoskeletal: No clubbing, No swelling, No tenderness Integumentary: No rashes Neurological: Normal gait, Normal speech, Normal strength at 5/5 x4 extr, Normal tone, Normal affect Lymphatics: No axilla or inguinal lymphadenopathy - Studies Laboratory Data (last 24 hrs) 11/08/17 10:55: Creatinine 0.80 11/08/17 10:55: WBC 7.8, Hgb 12.6, Hct 37.8, Plt Count 353 11/08/17 10:55: Sodium 145, Potassium 3.2 L, BUN 17, Creatinine 0.80, Glucose 117 H, Total Bilirubin 0.5, AST 21, ALT 25, Alkaline Phosphatase 72, Amylase 26 , Lipase 311 Assessment & Plan - Problems (Diagnosis) (1) Abdominal pain Onset Date: 11/09/17 Current Visit: Yes Status: Acute (2) Pancreatic pseudocyst Onset Date: 11/09/17 Current Visit: Yes Status: Acute (3) Common bile duct stricture Current Visit: No Status: Acute (4) Hyperlipidemia Onset Date: 08/28/17 Current Visit: No Status: Chronic Qualifiers: Hyperlipidemia type: mixed hyperlipidemia Qualified Code(s): E78.2 - Mixed hyperlipidemia (5) Hypertension Onset Date: 08/28/17 Current Visit: No Status: Chronic Qualifiers: Hypertension type: essential hypertension Qualified Code(s): I10 - Essential (primary) hypertension - Plan Plan: 1. Aggressive IV hydration 2. Pain control as needed 3. GI consultation for removal of common bile duct stent 4. Monitor hemodynamics closely 5. Clear liquid diet and advance as tolerated / NPO after midnight for possible stent removal 6. GI and DVT prophylaxis Discharge Plan: Home Plan to discharge in: 24 Hours - Advance Directives Does patient have a Living Will: No Does patient have a Durable POA for Healthcare: No - Code Status/Comfort Care Code Status Assessed: Yes Code Status: Full Code Critical Care: No Time Spent Managing PTS Care (In Minutes): 50
--- NOTE | 2017-11-09 11:15 | P.PN ---
Subjective Date of Service: 11/09/17 Chief Complaint: history of common bile duct stricture status post stent placement Subjective: No new changes (Patient's labs and history was reviewed. Patient with no new complaint. Continues to have mild nausea. No diarrhea today.) Review of Systems 10-point ROS is otherwise unremarkable Gastrointestinal: Nausea Physical Examination - Vital Signs Temperature: 98.1 F Blood Pressure: 120/59 Pulse: 78 Respirations: 18 Pulse Ox (%): 96 - Physical Exam General: Alert, In no apparent distress, Oriented x3, Cooperative HEENT: PERRLA, Mucous membr. moist/pink, EOMI Neck: Supple, 2+ carotid pulse no bruit Respiratory: Clear to auscultation bilaterally, Normal air movement Cardiovascular: No edema, Normal pulses, Regular rate/rhythm, Normal S1 S2 Capillary refill: <2 Seconds Gastrointestinal: Normal bowel sounds, Soft and benign, Non-distended, No tenderness Musculoskeletal: No clubbing, No swelling, No contractures, No erythema, No tenderness, No warmth Integumentary: No rashes, No breakdown, No significant lesion Neurological: Normal speech, Normal strength at 5/5 x4 extr, Normal tone, Sensation intact, Cranial nerves 3-12 intact, Normal reflexes 2+, Normal affect - Studies Laboratory Data (last 24 hrs) 11/08/17 10:55: Creatinine 0.80 11/08/17 10:55: WBC 7.8, Hgb 12.6, Hct 37.8, Plt Count 353 11/08/17 10:55: Sodium 145, Potassium 3.2 L, BUN 17, Creatinine 0.80, Glucose 117 H, Total Bilirubin 0.5, AST 21, ALT 25, Alkaline Phosphatase 72, Amylase 26 , Lipase 311 Assessment And Plan - Current Problems (Diagnosis) (1) Abdominal pain Onset Date: 11/09/17 Current Visit: Yes Status: Acute Qualifiers: Abdominal location: upper abdomen, unspecified Qualified Code(s): R10.10 - Upper abdominal pain, unspecified (2) Pancreatic pseudocyst Onset Date: 11/09/17 Current Visit: Yes Status: Chronic (3) Common bile duct stricture Current Visit: No Status: Acute (4) Pancreatitis Current Visit: No Status: Chronic Qualifiers: Chronicity: acute Pancreatitis type: biliary Acute pancreatitis complication: infected necrosis Qualified Code(s): K85.12 - Biliary acute pancreatitis with infected necrosis - Plan The patient will be given nausea medicine as needed. Patient will remain NPO and on fluids. GI has been consulted but is not seen patient yet. We are awaiting consult from GI to determine if they will be able to remove the common bile duct stent. If they are able to remove the stent patient will hopefully be able to go home tomorrow. Discharge Plan: Home Plan to discharge in: 24 Hours
[2017-11-09] MEDS: KCL 20 MEQ/100 mL IVPB 20 MEQ/100 ML BAG IV SCH ×2 (11:28→13:11)
[2017-11-09] MEDS: ONDANSETRON 4 MG/2 ML VIAL IV PRN ×2 (13:11→17:05)
[2017-11-09] MEDS ORDERED: ALPRAZOLAM 0.5 MG TABLET PO PRN (18:40)
[2017-11-09] MEDS ORDERED: HYDROCODONE/APAP 10/325 TAB PO PRN (18:40)
[2017-11-09] MEDS ORDERED: ZOLPIDEM TARTRATE 10 MG TABLET PO SCH (21:00)
[2017-11-09] MEDS: DICYCLOMINE HCL 10 MG CAP PO SCH (21:44)
[2017-11-09] MEDS: CARVEDILOL 25 MG TAB PO SCH (21:44)
[2017-11-09] MEDS ORDERED: POTASSIUM CL SA 10 MEQ TAB PO ONE (23:19)
[2017-11-10] MEDS: MORPHINE 4 MG/ML SYR IV PRN (03:10)
[2017-11-10 04:00] VITALS: O2SAT 94
[2017-11-10 06:30] LABS: BUN Blood Urea Nitrogen 6 mg/dL (7-18); Bicarbonate 29 mmol/L (21-32); Glucose Level 132 mg/dL (74-106); Potassium 3.7 mmol/L (3.5-5.1); Sodium Level 144 mmol/L (136-145)
[2017-11-10] MEDS ORDERED: POTASSIUM CL SA 10 MEQ TAB PO ONE (06:43)
[2017-11-10] MEDS: D5 0.45 NS 1,000 ML IV SCH (07:07)
[2017-11-10] MEDS: DICYCLOMINE HCL 10 MG CAP PO SCH (08:54)
[2017-11-10] MEDS: CARVEDILOL 25 MG TAB PO SCH (08:54)
[2017-11-10 08:56] VITALS: BP 139/64
[2017-11-10] MEDS ORDERED: PANTOPRAZOLE 40MG TABLET PO SCH (09:00)
[2017-11-10] MEDS ORDERED: RIVAROXABAN 20 MG TABLET PO SCH (09:00)
[2017-11-10 10:00] VITALS: TEMP 97.2
--- NOTE | 2017-11-27 08:13 | P.DS ---
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 Patient was diagnosed with pancreatitis secondary to common bile duct stricture. Patient had a stent placed. Patient developed secondary pancreatitis. Patient has severe pancreatitis. She was discharged from the hospital but required readmission a few days later because her pancreatitis had not improved. Patient developed a large pseudocyst at this time. Patient was discharged to a facility in [place] and then went to an [facility] and was given TPN. As patient's pancreatitis improved the TPN was DC. Patient was discharged from the LTAC about a week ago. Patient came back into the hospital to get her stent removed. Hospital Course: Patient's symptoms have improved. Decision was made to least stent in at this time. Patient will follow up as an outpatient in 1-2 weeks. Vital Signs/Physical Exam: Temp Pulse Resp BP Pulse Ox 97.2 F 62 18 139/64 95 11/10/17 08:00 11/10/17 08:54 11/10/17 08:00 11/10/17 08:54 11/10/17 08:00 General: Alert, In no apparent distress, Oriented x3 Laboratory Data at Discharge: WBC 6.7 K/uL (4.3-10.9) D 11/09/17 04:40 Hgb 10.5 g/dL (12.0-15.0) L 11/09/17 04:40 Hct 31.2 % (36.0-45.0) L D 11/09/17 04:40 Plt Count 217 K/uL (152-406) D 11/09/17 04:40 Sodium 144 mmol/L (136-145) 11/10/17 04:38 Potassium 3.7 mmol/L (3.5-5.1) 11/10/17 04:38 BUN 6 mg/dL (7-18) L 11/10/17 04:38 Creatinine 0.60 mg/dL (0.55-1.3) 11/10/17 04:38 Glucose 132 mg/dL (74-106) H 11/10/17 04:38 Total Bilirubin 0.5 mg/dL (0.2-1.0) 11/09/17 04:40 AST 20 U/L (15-37) 11/09/17 04:40 ALT 21 U/L (12-78) 11/09/17 04:40 Alkaline Phosphatase 61 U/L (45-117) 11/09/17 04:40 Amylase 26 U/L (25-115) 11/08/17 10:55 Lipase 218 U/L (73-393) 11/09/17 04:40 Home Medications: ALPRAZolam [Xanax*] 0.5 mg PO Q6H PRN 11/08/17 Carvedilol [Coreg*] 25 mg PO BID 11/08/17 Dicyclomine [Bentyl*] 10 mg PO TID 11/08/17 Hydrocodone 10/APAP 325 [[place] 10/325*] 1 tab PO Q6H PRN 11/08/17 Pantoprazole [Protonix Tab*] 40 mg PO DAILY 11/08/17 Rivaroxaban [Xarelto] 20 mg PO DAILY 11/08/17 Zolpidem Tartrate [Zolpidem Tartrate ER] 12.5 mg PO BEDTIME 11/08/17 Patient Discharge Instructions: OK TO DC IV AND DC HOME. FOLLOW-UP WITH PRIMARY CARE PROVIDER IN 1-2 WEEKS. Follow-up with [facility] lira 2-4 weeks. RETURN TO THE ER IF symptoms worsen. CALL or TEXT DR. LAMB AT [phone] IF ANY QUESTIONS REGARDING HOSPITAL STAY. PLEASE CALL THE FLOOR AT [phone] IF ANY MEDICATION OR NURSING QUESTIONS. Diet: low fat Activity: Fall precautions Followup: Rebecca Bowser MD [ACTIVE - CAN ADMIT] - Time spent managing pt's care (in minutes): 30
== END 2017-11-10 08:59 | disposition home or self-care (01) ==
LOC: ER 09:04 → ERHOLD 14:08 → 2ND 16:07
PROVIDERS: ADMIT Family Medicine; ATTEND Hospitalist
DX: R10.10 Upper abdominal pain, unspecified (principal); K86.3 Pseudocyst of pancreas; K83.1 Obstruction of bile duct; K86.1 Other chronic pancreatitis; Z86.73 Personal history of transient ischemic attack (TIA), and cerebral infarction without residual deficits
CPT/HCPCS: 36415; 74177; 80048; 80076; 81003; 81015; 81025; 82150; 82962; 83690; 84132; 85025; 87086; 87088; 99285; G0378; J2405; J7030; Q9967

== ENCOUNTER 2017-11-13 09:25 | Emergency (ER) | payer OTHER ==
[2017-11-13] MEDS ORDERED: NA CHLORIDE 0.9% 1,000 ML ONE ×3 (09:52→13:23)
[2017-11-13] MEDS ORDERED: FAMOTIDINE 20 MG/2 ML VIAL IV ONE (09:52)
[2017-11-13 09:57] LABS: Absolute Lymphocytes (CBC) 2.2 K/uL (0.7-4.9); Absolute Monocytes 0.4 K/uL (0.1-1.3); Basophils % 1.1 % (0-1.3); Eosinophils % 3.3 % (0-4.4); Hematocrit 40.6 % (36.0-45.0); Lymphocytes % 38.2 % (15.3-44.8); MCV 82.9 fL (80-100); Monocytes % 6.5 % (3.3-12.3)
[2017-11-13 10:03] LABS: Protime INR 1.09
[2017-11-13 10:17] LABS: ALT/SGPT 32 U/L (12-78); AST/SGOT 25 U/L (15-37); Albumin 4.1 g/dL (3.4-5.0); Alkaline Phosphatase 77 U/L (45-117); BUN Blood Urea Nitrogen 8 mg/dL (7-18); Bicarbonate 27 mmol/L (21-32); Bilirubin Direct 0.2 mg/dL (0-0.2); Bilirubin Total 0.7 mg/dL (0.2-1.0); CKMB Creatine Kinase MB < 1.0 ng/mL (0.3-3.6); Creatine Phosphokinase 33 U/L (26-192); Glucose Level 134 mg/dL (74-106); Lipase 148 U/L (73-393); Magnesium 2.4 mg/dL (1.8-2.4); NT PRO-BNP 886 pg/mL (<125); Potassium 3.8 mmol/L (3.5-5.1); Protein, Total 8.7 g/dL (6.4-8.2); Sodium Level 143 mmol/L (136-145)
--- NOTE | 2017-11-13 10:33 | RAD REPORT ---
EXAM DESCRIPTION: RAD - Chest Single View - 11/13/2017 10:07 am CLINICAL HISTORY: ABDOMINAL DISTENTION Chest pain. COMPARISON: Chest Single View dated 09/04/2017 FINDINGS: Portable technique limits examination quality. The lungs are grossly clear. The heart is normal in size. No displaced fractures.Thoracic scoliosis i s present concavity to the right. IMPRESSION: No acute intrathoracic process suspected.
--- NOTE | 2017-11-13 11:26 | RAD REPORT ---
EXAM DESCRIPTION: CT - Abdomen Pelvis W Contrast - 11/13/2017 11:13 am CLINICAL HISTORY: Abdominal pain. Left upper quadrant pain COMPARISON: November 08, 2017 TECHNIQUE: Computed axial tomography of the abdomen and pelvis was obtained. 100 cc Isovue-300 is ad ministered intravenously. Oral contrast was given. All CT scans are performed using dose optimization technique as appropriate and may include automated exposure control or mA/KV adjustment according to patient size. FINDINGS: The pancreatic pseudocysts are without significant change in size or appearance. Diminished density w ithin the pancreatic tail is unchanged compatible with necrosis. A biliary stent has migrated a few centimeters lower in the common bile duct and within the duodenum. Pneumobilia is present. A 37 millimeter low-density area within the right lobe of the liver is unchanged The spleen, adrenals and kidneys are unremarkable. The appendix is normal. There is no evidence of diverticulitis. IMPRESSION: Stable pancreatic pseudocysts Stable pancreatic necrosis Stable low-density area within the liver probably representing either a focal area of fatty infiltrat ion or differential perfusion
[2017-11-13 12:11] LABS: Urine Blood NEGATIVE (NEG); Urine Glucose NEGATIVE (NEG); Urine Protein 1+ (NEG); Urine Specific Gravity 1.015 (1.005-1.030)
--- NOTE | 2017-11-13 12:20 | ER ---
Nurse's Notes [facility] Name: Christie Cardenas Age: 47 yrs Sex: Female : 1970 Arrival Date: 11/13/2017 Time: 09:29 Bed 18 Private MD: Out, [facility] Diagnosis: Abdominal tenderness;Other chest pain;Other chronic pancreatitis-stable pseudocyst, necrosis, cbd stent has migrated Presentation: 11/13 09:30 Presenting complaint: Patient states: LUQ pain since yesterday. Denies N/V/D. hb Transition of care: patient was not received from another setting of care. Onset of symptoms was November 12, 2017. Risk Assessment: Do you want to hurt yourself or someone else? Patient reports no desire to harm self or others. Initial Sepsis Screen: Does the patient meet any 2 criteria? No. Patient's initial sepsis screen is negative. Does the patient have a suspected source of infection? No. Patient's initial sepsis screen is negative. Care prior to arrival: None. 09:30 Method Of Arrival: Ambulatory hb 09:30 Acuity: KVNG 3 hb Triage Assessment: 09:33 General: Appears in no apparent distress. uncomfortable, Behavior is calm, cooperative, hj appropriate for age. Pain: Complains of pain in left upper quadrant. EENT: No signs and/or symptoms were reported regarding the EENT system. Neuro: Level of Consciousness is awake, alert, obeys commands, Oriented to person, place, time, situation, Appropriate for age. Cardiovascular: Capillary refill < 3 seconds. Respiratory: Airway is patent Respiratory effort is even, unlabored, Respiratory pattern is regular, symmetrical. GI: Abdomen is non-distended, Bowel sounds present X 4 quads. : No signs and/or symptoms were reported regarding the genitourinary system. Derm: No signs and/or symptoms reported regarding the dermatologic system. Musculoskeletal: No signs and/or symptoms reported regarding the musculoskeletal system. 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 - Social history:: Smoking status: Patient/guardian denies using tobacco. - Ebola Screening: : No symptoms or risks identified at this time. - Family history:: not pertinent. Screenin:33 Abuse screen: Denies threats or abuse. Denies injuries from another. Nutritional hj screening: No deficits noted. Tuberculosis screening: No symptoms or risk factors identified. Fall Risk None identified. Assessment: 09:34 Pain: Pain does not radiate. Pain began 1 day ago. GI: Abd is soft and non tender. hj 09:35 Reassessment: see triage for assessment;. hj 10:55 Reassessment: Patient and/or family updated on plan of care and expected duration. Pain hj level reassessed. Patient is alert, oriented x 3, equal unlabored respirations, skin warm/dry/pink. wheeled to CT; Patient states feeling better. 11:55 Reassessment: Patient and/or family updated on plan of care and expected duration. Pain hj level reassessed. Patient is alert, oriented x 3, equal unlabored respirations, skin warm/dry/pink. complaint of LUQ pain 10/31; MD aware;. 12:55 Reassessment: Patient and/or family updated on plan of care and expected duration. Pain hj level reassessed. Patient is alert, oriented x 3, equal unlabored respirations, skin warm/dry/pink. for possible admit;. 13:10 Reassessment: Patient and/or family updated on plan of care and expected duration. Pain hj level reassessed. Patient is alert, oriented x 3, equal unlabored respirations, skin warm/dry/pink. pt for D/C; called Dr. Rodriguez for pain update, ordered tramadol 50 mg PO;. 13:52 Reassessment: Patient and/or family updated on plan of care and expected duration. Pain hj level reassessed. Patient is alert, oriented x 3, equal unlabored respirations, skin warm/dry/pink. pt complaining of pain in LUQ abd; 12/01;. Vital Signs: 09:31 BP 176 / 101; Pulse 88; Resp 16; Temp 98.4; Pulse Ox 97% on R/A; Pain 7/10; hb 10:56 BP 180 / 95; Pulse 87; Resp 18; Pulse Ox 100% on R/A; hj 11:55 BP 178 / 92; Pulse 84; Resp 18; Pulse Ox 100% on R/A; hj 13:27 BP 182 / 90; Pulse 85; Resp 18; Pulse Ox 100% on R/A; hj 13:52 BP 196 / 93; Pulse 75; Pulse Ox 100% on R/A; hj ED Course: 09:29 Patient arrived in ED. sb2 09:29 Out, of [facility] is Private Physician. sb2 09:31 Triage completed. hb 09:32 Ian Cosby, RN is Primary Nurse. hj 09:32 Arm band placed on left wrist. hb 09:32 Lab(s) recollected, by me, sent to lab. Urine collected:. Inserted saline lock: 22 hj gauge in left antecubital area, using aseptic technique. Blood collected. 09:33 Harshil Orr MD is Attending Physician. miguel 09:34 Patient has correct armband on for positive identification. Placed in gown. Bed in low hj position. Call light in reach. Side rails up X 1. cafeteria monitor on. Pulse ox on. NIBP on. 09:35 Patient maintains SpO2 saturation greater than 95% on room air. hj 10:04 EKG done, by medical administrative technician. reviewed by Harshil Orr MD. at1 10:07 XRAY Chest (1 view) In Process Unspecified. EDMS 10:09 X-ray completed. Portable x-ray completed in exam room. Patient tolerated procedure jb2 well. 11:13 CT Abd/Pelvis - W/Contrast In Process Unspecified. EDMS 12:16 Tracy Rodriguez MD is Hospitalizing Provider. miguel 12:51 Rebecca Bowser MD is Referral Physician. miguel 12:51 Varun Ch MD is Referral Physician. miguel 14:16 No provider procedures requiring assistance completed. IV discontinued, intact, hj bleeding controlled, No redness/swelling at site. Pressure dressing applied. Administered Medications: 09:44 Drug: NS 0.9% 1000 ml Route: IV; Rate: 1 bolus; Site: left antecubital; hj 12:58 Follow up: IV Status: Completed infusion hj 09:44 Drug: Pepcid 20 mg Route: IVP; Site: left antecubital; hj 10:19 Follow up: Response: No adverse reaction hj 09:56 Drug: NS 0.9% 1000 ml Route: IV; Rate: 125 ml/hr; Site: left antecubital; hj 12:58 Follow up: IV Status: Completed infusion hj 12:15 Drug: NS 0.9% 1000 ml Route: IV; Rate: 1 bolus; Site: left antecubital; hj 13:19 Follow up: IV Status: Completed infusion hj 13:13 Drug: traMADol 50 mg Route: PO; hj 13:18 Follow up: Response: No adverse reaction; Pain is decreased hj 13:37 Drug: Meropenem 1 grams Route: IV; Rate: per protocol; Site: left antecubital; hj 13:38 Follow up: IV Status: Completed infusion Outcome: 12:20 Decision to Hospitalize by Provider. [facility] 12:53 Discharge ordered by MD. [facility] 14:16 Discharged to home ambulatory. 14:16 Condition: stable 14:16 Discharge instructions given to patient, Instructed on discharge instructions, follow up and referral plans. medication usage, Demonstrated understanding of instructions, follow-up care, medications, Prescriptions given X 1. 14:16 Patient left the ED. Signatures: Dispatcher [employer] EDMS Harshil Orr MD MD cha Buechter, Jesse jb2 Carolyn crow, freedom of information officer EKG Tat1 Ian Cosby RN RN hj Baxter, Heather, RN RN Adele Vogt sb2 Corrections: (The following items were deleted from the chart) 13:53 13:27 BP 175 / 89; Pulse 85bpm; Resp 18bpm; Pulse Ox 100% RA; hj hj
--- NOTE | 2017-11-13 12:20 | EDPHYS ---
Physician Documentation [facility] Name: Christie Cardenas Age: 47 yrs Sex: Female : 1970 Arrival Date: 11/13/2017 Time: 09:29 Bed 18 Private MD: Out, [facility] ED Physician Harshil Orr HPI: 11/13 11:13 This 47 yrs old Female presents to ER via Ambulatory with complaints of miguel Abdominal Pain. 11:13 The patient or guardian reports chest pain that is located primarily in the epigastric miguel area, anterior chest wall, bilaterally. Onset: yesterday. The patient presents with abdominal pain in the epigastric area, in the upper abdomen. Onset: The symptoms/episode began/occurred yesterday. The pain does not radiate. The symptoms do not radiate. Associated signs and symptoms: none. The symptoms are described as crampy, sharp. Associated signs and symptoms: The patient has no apparent associated signs or symptoms. 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 - Social history:: Smoking status: Patient/guardian denies using tobacco. - Ebola Screening: : No symptoms or risks identified at this time. - Family history:: not pertinent. ROS: 11:13 Constitutional: Negative for fever, chills, and weight loss, Eyes: Negative for injury, miguel pain, redness, and discharge, ENT: Negative for injury, pain, and discharge, Neck: Negative for injury, pain, and swelling, Cardiovascular: Negative for chest pain, palpitations, and edema, Respiratory: Negative for shortness of breath, cough, wheezing, and pleuritic chest pain, Back: Negative for injury and pain, : Negative for injury, bleeding, discharge, and swelling, MS/Extremity: Negative for injury and deformity, Skin: Negative for injury, rash, and discoloration, Neuro: Negative for headache, weakness, numbness, tingling, and seizure, Psych: Negative for depression, anxiety, suicide ideation, homicidal ideation, and hallucinations, Allergy/Immunology: Negative for hives, rash, and allergies, Endocrine: Negative for neck swelling, polydipsia, polyuria, polyphagia, and marked weight changes, Hematologic/Lymphatic: Negative for swollen nodes, abnormal bleeding, and unusual bruising. 11:13 Abdomen/GI: Positive for abdominal pain, of the epigastric area, right upper quadrant and left upper quadrant. Exam: 11:13 Constitutional: This is a well developed, well nourished patient who is awake, alert, miguel and in no acute distress. Head/Face: Normocephalic, atraumatic. Eyes: Pupils equal round and reactive to light, extra-ocular motions intact. Lids and lashes normal. Conjunctiva and sclera are non-icteric and not injected. Cornea within normal limits. Periorbital areas with no swelling, redness, or edema. ENT: Nares patent. No nasal discharge, no septal abnormalities noted. Tympanic membranes are normal and external auditory canals are clear. Oropharynx with no redness, swelling, or masses, exudates, or evidence of obstruction, uvula midline. Mucous membranes moist. Neck: Trachea midline, no thyromegaly or masses palpated, and no cervical lymphadenopathy. Supple, full range of motion without nuchal rigidity, or vertebral point tenderness. No Meningismus. Chest/axilla: Normal chest wall appearance and motion. Nontender with no deformity. No lesions are appreciated. Cardiovascular: Regular rate and rhythm with a normal S1 and S2. No gallops, murmurs, or rubs. Normal PMI, no JVD. No pulse deficits. Respiratory: Lungs have equal breath sounds bilaterally, clear to auscultation and percussion. No rales, rhonchi or wheezes noted. No increased work of breathing, no retractions or nasal flaring. Back: No spinal tenderness. No costovertebral tenderness. Full range of motion. Female : Normal external genitalia. Skin: Warm, dry with normal turgor. Normal color with no rashes, no lesions, and no evidence of cellulitis. MS/ Extremity: Pulses equal, no cyanosis. Neurovascular intact. Full, normal range of motion. Neuro: Awake and alert, GCS 15, oriented to person, place, time, and situation. Cranial nerves II-XII grossly intact. Motor strength 5/5 in all extremities. Sensory grossly intact. Cerebellar exam normal. Normal gait. Psych: Awake, alert, with orientation to person, place and time. Behavior, mood, and affect are within normal limits. 11:13 Abdomen/GI: Inspection: distension, Bowel sounds: normal, Palpation: mild abdominal tenderness, moderate abdominal tenderness, in the epigastric area and left upper quadrant. Vital Signs: 09:31 BP 176 / 101; Pulse 88; Resp 16; Temp 98.4; Pulse Ox 97% on R/A; Pain 7/10; hb 10:56 BP 180 / 95; Pulse 87; Resp 18; Pulse Ox 100% on R/A; hj 11:55 BP 178 / 92; Pulse 84; Resp 18; Pulse Ox 100% on R/A; hj 13:27 BP 182 / 90; Pulse 85; Resp 18; Pulse Ox 100% on R/A; hj 13:52 BP 196 / 93; Pulse 75; Pulse Ox 100% on R/A; hj MDM: 09:33 Patient medically screened. [facility] 11:13 Data reviewed: vital signs, nurses notes, lab test result(s), EKG, radiologic studies, [facility] CT scan, plain films. 12:54 ED course: dr lomeli saw and elevated pt, spoke with patients doctors and has agreed to [facility] follow up as scheduled. 11/13 09:38 Order name: Basic Metabolic Panel; Complete Time: 11: [facility] 11/13 09:38 Order name: CBC with Diff; Complete Time: 11: [facility] 11/13 09:38 Order name: Ckmb; Complete Time: : [facility] 11/13 09:38 Order name: CPK; Complete Time: 11: [facility] 11/13 09:38 Order name: LFT's; Complete Time: 11: [facility] 11/13 09:38 Order name: Magnesium; Complete Time: 11: [facility] 11/13 09:38 Order name: NT PRO-BNP; Complete Time: : [facility] 11/13 09:38 Order name: PT-INR; Complete Time: 11: [facility] 11/13 09:38 Order name: Ptt, Activated; Complete Time: 11: [facility] 11/13 09:38 Order name: Troponin (emerg Dept Use Only); Complete Time: : [facility] 11/13 09:38 Order name: XRAY Chest (1 view); Complete Time: 11:23 miguel 11/13 09:38 Order name: Lipase; Complete Time: 11:23 miguel 11/13 11:11 Order name: Urine Dipstick--Ancillary (enter results); Complete Time: 12:11 ag 11/13 11:11 Order name: Urine --Ancillary (enter results); Complete Time: 12:11 ag 11/13 09:38 Order name: Urine Test (obtain specimen); Complete Time: 10:19 [facility] 11/13 09:38 Order name: EKG; Complete Time: 09:39 [facility] 11/13 09:38 Order name: Cardiac monitoring; Complete Time: 09:44 [facility] 11/13 09:38 Order name: EKG - Nurse/Tech; Complete Time: 09:45 [facility] 11/13 09:38 Order name: IV Saline Lock; Complete Time: 09:45 [facility] 11/13 09:38 Order name: Labs collected and sent; Complete Time: 09:45 [facility] 11/13 09:38 Order name: O2 Per Protocol; Complete Time: 09:45 [facility] 11/13 09:38 Order name: O2 Sat Monitoring; Complete Time: 09:45 [facility] 11/13 09:38 Order name: CT Abd/Pelvis - W/Contrast; Complete Time: 12:11 [facility] 11/13 12:25 Order name: CONS Physician Consult; Complete Time: 13:10 EDMS 11/13 09:38 Order name: Urine Dipstick-Ancillary (obtain specimen); Complete Time: 10:19 [facility] 11/13 12:15 Order name: NPO; Complete Time: 13:10 [facility] Administered Medications: 09:44 Drug: NS 0.9% 1000 ml Route: IV; Rate: 1 bolus; Site: left antecubital; hj 12:58 Follow up: IV Status: Completed infusion hj 09:44 Drug: Pepcid 20 mg Route: IVP; Site: left antecubital; hj 10:19 Follow up: Response: No adverse reaction hj 09:56 Drug: NS 0.9% 1000 ml Route: IV; Rate: 125 ml/hr; Site: left antecubital; hj 12:58 Follow up: IV Status: Completed infusion hj 12:15 Drug: NS 0.9% 1000 ml Route: IV; Rate: 1 bolus; Site: left antecubital; hj 13:19 Follow up: IV Status: Completed infusion hj 13:13 Drug: traMADol 50 mg Route: PO; hj 13:18 Follow up: Response: No adverse reaction; Pain is decreased hj 13:37 Drug: Meropenem 1 grams Route: IV; Rate: per protocol; Site: left antecubital; hj 13:38 Follow up: IV Status: Completed infusion hj Disposition: 11/13/17 12:53 Discharged to Home. Impression: Abdominal tenderness, Other chest pain, Other chronic pancreatitis - stable pseudocyst, necrosis, cbd stent has migrated. - Condition is Stable. - Discharge Instructions: Abdominal Pain, Adult, Nonspecific Chest Pain, Abdominal Pain, Adult, [id number], Nonspecific Chest Pain, [id number], Chronic Pancreatitis. - Prescriptions for Zofran 4 mg Oral Tablet - take 1 tablet by ORAL route every 12 hours As needed; 14 tablet. - Medication Reconciliation Form, Thank You Letter, Antibiotic Education, Prescription Opioid Use form. - Follow up: Private Physician; When: Upon discharge from the Emergency Department; Reason: Recheck today's complaints, Continuance of care, Re-evaluation by your physician. Follow up: Rebecca Bowser MD; When: Upon discharge from the Emergency Department; Reason: Recheck today's complaints, Re-evaluation by your physician. Follow up: Varun Ch MD; When: Upon discharge from the Emergency Department; Reason: Recheck today's complaints, Re-evaluation by your physician. - Problem is new. - Symptoms have improved. Signatures: Dispatcher [employer] EDHI Harshil Orr MD MD cha Joaquin, Henry, RN RN Nata Radford RN RN Corrections: (The following items were deleted from the chart) 12:50 12:20 Hospitalization Ordered by Tracy Lomeli MD for Inpatient Admission. Preliminary miguel diagnosis is Abdominal tenderness; Other chest pain; Other acute pancreatitis - pseudocyst, with necrosis, stable. Bed requested for Telemetry/MedSurg (Inpatient). Status is Inpatient Admission. Condition is Fair. Problem is new. Symptoms have improved. UTI on Admission? No. miguel 14:16 12:53 11/13/2017 12:53 Discharged to Home. Impression: Abdominal tenderness; Other hj chest pain; Other chronic pancreatitis - stable pseudocyst, necrosis, cbd stent has migrated. Condition is Stable. Forms are Medication Reconciliation Form, Thank You Letter, Antibiotic Education, Prescription Opioid Use. Follow up: Private Physician; When: Upon discharge from the Emergency Department; Reason: Recheck today's complaints, Continuance of care, Re-evaluation by your physician. Follow up: Rebecca Bowser; When: Upon discharge from the Emergency Department; Reason: Recheck today's complaints, Re-evaluation by your physician. Follow up: Varun Ch; When: Upon discharge from the Emergency Department; Reason: Recheck today's complaints, Re-evaluation by your physician. Problem is new. Symptoms have improved. miguel
[2017-11-13] MEDS ORDERED: TRAMADOL HCL 50 MG TAB ONE (13:18)
--- NOTE | 2017-11-13 13:24 | EKG ---
Test Date: 2017-11-13 Test Time: 09:43:58 Clinic Lead: GABINO MEASUREMENT RESULTS: Intervals: Rate: 82 WA: 136 QRSD: 94 QT: 396 QTc: 462 [place]: P: 54 WA: 136 QRS: 24 T: 27 INTERPRETIVE STATEMENTS: Normal sinus rhythm Nonspecific T wave abnormality Prolonged QT Abnormal ECG No previous ECG available for comparison Electronically Signed On 11-13-17 13:23:33 CDT by Bill Dobbins
[2017-11-13] MEDS ORDERED: Meropenem 1,000 MG in NA CHLORIDE 0.9% 100 ML IV ONE (13:30)
[2017-11-13 14:25] VITALS: TEMP 98.4
[2017-11-13 14:35] VITALS: O2SAT 100
[2017-11-13 14:38] VITALS: BP 196/93
--- NOTE | 2017-11-13 17:59 | P.CNS ---
Date of Consult: 11/13/17 Reason for Consult: Removal of CBD stent Requesting Physician: Harshil Orr Chief Complaint: N/V History of Present Illness: This is a 47-year-old female with significant past medical history of chronic pancreatitis, pseudocyst, necrosis of the pancreatic tail. In gallbladder stricture. Patient presented to the ER complaining of having some abdominal pain specifically in the right upper quadrant along with nausea vomiting that started this morning. Patient was just released from the hospital 2 days ago for similar complaints. At that time GI was consulted. Patient had a CBD stent placed 2 weeks ago for her common bowel stricture. Patient stated that the stent was to be removed in the clinic however did not follow up appointment med but her appointment has been scheduled to November 20 and they will be removing her stent at that time. Medicine team was consulted to admit the patient for nausea vomiting along with stent removal. Allergies sulfamethoxazole [From Bactrim] Allergy (Verified 08/27/17 16:18) Hives/Rash trimethoprim [From Bactrim] Allergy (Verified 08/27/17 16:18) Hives/Rash Home Medications: ALPRAZolam [Xanax*] 0.5 mg PO Q6H PRN 11/08/17 Carvedilol [Coreg*] 25 mg PO BID 11/08/17 Dicyclomine [Bentyl*] 10 mg PO TID 11/08/17 Hydrocodone 10/APAP 325 [[place] 10/325*] 1 tab PO Q6H PRN 11/08/17 Pantoprazole [Protonix Tab*] 40 mg PO DAILY 11/08/17 Rivaroxaban [Xarelto] 20 mg PO DAILY 11/08/17 Zolpidem Tartrate [Zolpidem Tartrate ER] 12.5 mg PO BEDTIME 11/08/17 - Past Medical/Surgical History Diabetic: No -: HTN -: Pt had a stroke in July 2016 -: Anxiety -: hysterectomy - Social History Alcohol use: No CD- Drugs: No Caffeine use: Yes Review of Systems General: As per HPI Physical Examination Temp Pulse Resp BP Pulse Ox 98.4 F 75 18 196/93 H 11/13/17 09:31 11/13/17 13:52 11/13/17 13:27 11/13/17 13:52 General: Alert, In no apparent distress HEENT: Atraumatic, PERRLA, Mucous membr. moist/pink, EOMI, Sclerae nonicteric Neck: Supple, 2+ carotid pulse no bruit, No LAD, Without JVD or thyroid abnormality Respiratory: Clear to auscultation bilaterally, Normal air movement Cardiovascular: Regular rate/rhythm, Normal S1 S2 Gastrointestinal: Normal bowel sounds, No tenderness Musculoskeletal: No tenderness Integumentary: No rashes Neurological: Normal gait, Normal speech, Normal tone, Normal affect Lymphatics: No axilla or inguinal lymphadenopathy Laboratory Data (last 24 hrs) 11/13/17 09:45: PT 12.9 H, INR 1.09, APTT 27.6 11/13/17 09:45: WBC 5.9, Hgb 13.7 D, Hct 40.6 D, Plt Count 347 D 11/13/17 09:45: Sodium 143, Potassium 3.8, BUN 8, Creatinine 0.70, Glucose 134 H , Magnesium 2.4, Total Bilirubin 0.7, AST 25, ALT 32, Alkaline Phosphatase 77, Lipase 148 - Problems (1) Intractable nausea and vomiting Onset Date: 08/28/17 Status: Resolved Qualifiers: Vomiting type: cyclical vomiting (2) RUQ abdominal pain Onset Date: 08/28/17 Status: Resolved (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 (4) Hyperlipidemia Onset Date: 08/28/17 Status: Chronic Qualifiers: Hyperlipidemia type: mixed hyperlipidemia (5) Hypertension Onset Date: 08/28/17 Status: Chronic Qualifiers: Hypertension type: essential hypertension (6) Obesity Onset Date: 08/28/17 Status: Chronic Qualifiers: Obesity type: due to excess calories Obesity classification: adult class 1 (BMI 30 - 34.9) Serious obesity comorbidity presence: without serious comorbidity Body mass index: BMI 31.0-31.9 Qualified Code(s): E66.09 - Other obesity due to excess calories; Z68.31 - Body mass index (BMI) 31.0-31.9, adult Conclusions/Impression: Patient was evaluated in the ER labwork was evaluated which was within normal limits. Patient's nausea and vomiting was resolved. Complaining of abdominal pain that had improved as well. GI was consulted from the ER. GI recommended that patient be discharged home with outpatient follow up to remove the stent and this could be done on urgently. In 2 weeks. Patient will have an appointment with Dr. zamarripa on November 20 and will be reassessed at that time regarding her stent patient was then discharged from the ER under stable condition. Critical Care: No
== END 2017-11-13 14:16 | disposition home or self-care (01) ==
LOC: ER 09:25 → UNDOADMIN 13:18 → ERHOLD 13:18
DX: R07.89 Other chest pain (principal); K86.1 Other chronic pancreatitis; K86.3 Pseudocyst of pancreas; T83.89XA Other specified complication of genitourinary prosthetic devices, implants and grafts, initial encounter; I10 Essential (primary) hypertension; Z79.01 Long term (current) use of anticoagulants; Z88.1 Allergy status to other antibiotic agents; Z86.73 Personal history of transient ischemic attack (TIA), and cerebral infarction without residual deficits
CPT/HCPCS: 36415; 71045; 74177; 80048; 80076; 81003; 81025; 82550; 82553; 83690; 83735; 83880; 84484; 85025; 85610; 85730; 93005; 96361; 96374; 96375; 99285; J7030; Q9967